=== PATIENT | female | born 1955 | race African-American/Black ===

== ENCOUNTER 2017-02-20 20:43 | Emergency (ER) | payer MEDICARE, OTHER ==
[~2017-02-20] VITALS: Ht 167.6 cm; Wt 68.0 kg
[~2017-02-20 20:43] MED LIST: ARIP15TA3 PO; ARIP400S IM; CHOL200016 PO; DULO20CA30 PO; DULO30CA2 PO; FERR-89 PO; LEVO25TA9 PO; TRAZ-144 PO
[2017-02-20 21:30] LABS: BASOPHILS % (AUTO) 0.7 % (0.0-2.0); EOSINOPHILS % (AUTO) 2.5 % (1.0-6.0); HEMATOCRIT 39.3 % (36-46); HEMOGLOBIN 12.8 g/dL (12.0-16.0); LYMPHOCYTES % (AUTO) 17.6 % (22.0-44.0); MEAN CORPUSCULAR HEMOGLOBIN 29.1 pg (26.0-34.0); MEAN CORPUSCULAR HGB CONC 32.6 G/dL (31.0-37.0); MEAN CORPUSCULAR VOLUME 89 fL (80-100); MONOCYTES # (AUTO) 0.8 K/uL (0.1-1.0); NEUTROPHILS # (AUTO) 3.6 K/uL (1.8-7.7); NEUTROPHILS % (AUTO) 65.2 % (40.0-70.0); PLATELET COUNT (AUTO) 297 K/uL (150-450); RED BLOOD CELL COUNT(AUTO) 4.41 MIL/uL (4.00-5.20); RED CELL DISTRIBUTION WIDTH 15.6 % (11.5-14.5); WHITE BLOOD COUNT (AUTO) 5.6 K/uL (4.5-11.0)
[2017-02-20 21:38] LABS: ANION GAP 7 mmol/L (8-16); CALCIUM, TOTAL 9.2 mg/dL (8.8-10.5); CARBON DIOXIDE 28 mmol/L (22-29); CHLORIDE 102 mmol/L (98-107); CREATININE 0.86 mg/dL (0.60-1.30); GLOMERULAR FILTR. RATE CALC > 60 mL/min (>60); POTASSIUM 4.3 mmol/L (3.5-5.1); SODIUM SERUM 137 mmol/L (136-145); UREA NITROGEN, BLOOD 13 mg/dL (7-18)
[2017-02-20 21:44] LABS: ALANINE AMINOTRANSFERASE 17 U/L (12-78); ALBUMIN 3.5 g/dL (3.4-5.0); ASPARTATE AMINOTRANSFERASE 22 U/L (15-37); BILIRUBIN,TOTAL 0.3 mg/dL (0.1-1.0); TOTAL PROTEIN, SERUM 7.4 g/dL (6.4-8.2)
[2017-02-20] MEDS ORDERED: TraZODone HCL 50 MG TABLET PO ONE (23:45)
[2017-02-20 23:59] VITALS: BP 134/70
== END 2017-02-21 00:03 | disposition home or self-care (01) ==
LOC: EMS 20:45
DX: F32.9 Major depressive disorder, single episode, unspecified (principal); F20.9 Schizophrenia, unspecified
CPT/HCPCS: 36415; 80053; 85025; 99284; G0480

== ENCOUNTER 2017-10-15 19:32 | Inpatient (IN) | payer MEDICARE, OTHER ==
[~2017-10-15] VITALS: Ht 167.6 cm; Wt 64.5 kg
[~2017-10-15 19:32] MED LIST changes: +ARIP15TA2 PO; -ARIP15TA3 PO; -ARIP400S IM; -DULO30CA2 PO
[2017-10-15] MEDS ORDERED: TRAZ-147 PO (19:41)
[2017-10-15] MEDS ORDERED: CLON.5 PO (19:41)
[2017-10-15] MEDS ORDERED: RISP1 PO ×2 (19:41)
[2017-10-15 20:41] LABS: EOSINOPHILS % (AUTO) 0.2 % (1.0-6.0); HEMATOCRIT 36.3 % (36-46); HEMOGLOBIN 12.2 g/dL (12.0-16.0); LYMPHOCYTES # (AUTO) 0.9 K/uL (1.0-4.8); LYMPHOCYTES % (AUTO) 11.6 % (22.0-44.0); MEAN CORPUSCULAR HEMOGLOBIN 31.7 pg (26.0-34.0); MEAN CORPUSCULAR HGB CONC 33.7 G/dL (31.0-37.0); MEAN CORPUSCULAR VOLUME 94 fL (80-100); MONOCYTES # (AUTO) 0.6 K/uL (0.1-1.0); MONOCYTES % (AUTO) 8.4 % (2.0-9.0); NEUTROPHILS % (AUTO) 78.8 % (40.0-70.0); PLATELET COUNT (AUTO) 244 K/uL (150-450); RED BLOOD CELL COUNT(AUTO) 3.86 MIL/uL (4.00-5.20); RED CELL DISTRIBUTION WIDTH 14.8 % (11.5-14.5); WHITE BLOOD COUNT (AUTO) 7.6 K/uL (4.5-11.0)
[2017-10-15 20:46] LABS: ANION GAP 6 mmol/L (8-16); CALCIUM, TOTAL 9.2 mg/dL (8.8-10.5); CARBON DIOXIDE 30 mmol/L (22-29); CHLORIDE 104 mmol/L (98-107); CREATININE 0.97 mg/dL (0.60-1.30); GLOMERULAR FILTR. RATE CALC > 60 mL/min (>60); POTASSIUM 3.9 mmol/L (3.5-5.1); SODIUM SERUM 140 mmol/L (136-145); UREA NITROGEN, BLOOD 13 mg/dL (7-18)
[2017-10-15 20:48] LABS: INR 1.1 (0.9-1.1); PROTHROMBIN TIME 11.4 SEC (9.4-11.6)
[2017-10-15 21:02] LABS: B-TYPE NATRIURETIC PEPTIDE 15 pg/mL (0-100)
[2017-10-15 21:11] LABS: ALANINE AMINOTRANSFERASE 31 U/L (12-78); ALBUMIN 3.3 g/dL (3.4-5.0); ASPARTATE AMINOTRANSFERASE 23 U/L (15-37); BILIRUBIN,TOTAL 0.4 mg/dL (0.1-1.0); CREATINE KINASE MB 1.1 ng/mL (0-5); CREATINE KINASE, TOTAL 136 U/L (26-192); TOTAL PROTEIN, SERUM 6.8 g/dL (6.4-8.2)
[2017-10-15 21:34] LABS: GLUCOSE, URINE (UA) 100 mg/dL (NEGATIVE); KETONES,URINE TRACE mg/dL (NEGATIVE); LEUKOCYTE ESTERASE ,URINE TRACE (NEGATIVE); OCCULT BLOOD,URINE NEGATIVE (NEGATIVE); PH,URINE 5.5 (5.0-8.0); PROTEIN,URINE NEGATIVE (NEGATIVE)
[2017-10-15 21:40] LABS: ADD UA MICROSCOPIC YES; APPEARANCE,URINE HAZY (CLEAR)
[2017-10-15 21:43] LABS: RBC,URINE 0-2 /HPF (0-2); WBC,URINE 0-2 /HPF (0-5)
[2017-10-15 21:44] LABS: SQUAMOUS EPITHELIAL CELL,UR Few /LPF (None Seen)
[2017-10-16 02:38] VITALS: BP 146/71
[2017-10-16] MEDS ORDERED: INFLUENZA VIRUS VACCINE QVS 2017-18 (3YR+)/PF 60 MCG/0.5 ML SYRINGE IM ONE (05:45)
[2017-10-16 07:44] VITALS: BP 116/59
[2017-10-16] MEDS ORDERED: MAGNESIUM HYDROXIDE SUSPENSION 30 ML UDCUP PO PRN (09:15)
[2017-10-16] MEDS ORDERED: ACETAMINOPHEN 325 MG TABLET PO PRN (09:15)
[2017-10-16] MEDS: ASPIRIN 81 MG CHEWABLE TABLET PO SCH (09:58)
[2017-10-16] MEDS: ENOXAPARIN SODIUM 40 MG/0.4 ML PF SYRINGE SQ SCH (09:58)
[2017-10-16 11:55] VITALS: BP 124/64
[2017-10-16] MEDS: OxyCODONE HCL/ACETAMINOPHEN 5-325 MG TABLET PO PRN (14:14)
[2017-10-16 15:30] VITALS: BP 126/68
[2017-10-16 20:00] VITALS: BP 126/61
[2017-10-16] MEDS: DOCUSATE SODIUM 100 MG CAPSULE PO SCH (20:51)
[2017-10-16 23:00] VITALS: BP 140/56
[2017-10-17 04:00] VITALS: BP 142/56
[2017-10-17 07:35] VITALS: BP 138/71
[2017-10-17] MEDS: ASPIRIN 81 MG CHEWABLE TABLET PO SCH (08:54)
[2017-10-17] MEDS: DOCUSATE SODIUM 100 MG CAPSULE PO SCH ×2 (08:54→19:58)
[2017-10-17] MEDS: ENOXAPARIN SODIUM 40 MG/0.4 ML PF SYRINGE SQ SCH (08:54)
[2017-10-17] MEDS: PANTOPRAZOLE SODIUM 40 MG DR TABLET PO SCH (08:54)
[2017-10-17 15:30] VITALS: BP 137/70
[2017-10-17] MEDS: OxyCODONE HCL/ACETAMINOPHEN 5-325 MG TABLET PO PRN (19:58)
[2017-10-17 20:09] VITALS: BP 131/68
[2017-10-17 23:59] VITALS: BP 135/70
[2017-10-18 05:53] VITALS: BP 138/67
[2017-10-18 07:26] VITALS: BP 135/54
[2017-10-18] MEDS: ENOXAPARIN SODIUM 40 MG/0.4 ML PF SYRINGE SQ SCH (08:13)
[2017-10-18] MEDS: DOCUSATE SODIUM 100 MG CAPSULE PO SCH ×2 (08:13→20:03)
[2017-10-18] MEDS: ASPIRIN 81 MG CHEWABLE TABLET PO SCH (08:13)
[2017-10-18] MEDS: PANTOPRAZOLE SODIUM 40 MG DR TABLET PO SCH (08:13)
[2017-10-18 11:48] VITALS: BP 131/61
[2017-10-18 16:23] VITALS: BP 139/55
[2017-10-18 19:30] VITALS: BP 138/60
[2017-10-18 23:30] VITALS: BP 132/56
[2017-10-19] VITALS (7 sets, daily range): BP systolic 125–140; BP diastolic 56–75
[2017-10-19] MEDS: PANTOPRAZOLE SODIUM 40 MG DR TABLET PO SCH (08:14)
[2017-10-19] MEDS: DOCUSATE SODIUM 100 MG CAPSULE PO SCH ×2 (08:14→20:35)
[2017-10-19] MEDS: ENOXAPARIN SODIUM 40 MG/0.4 ML PF SYRINGE SQ SCH (08:14)
[2017-10-19] MEDS: ASPIRIN 81 MG CHEWABLE TABLET PO SCH (08:14)
[2017-10-19] MEDS: OxyCODONE HCL/ACETAMINOPHEN 5-325 MG TABLET PO PRN (20:39)
[2017-10-20 03:30] VITALS: BP 134/62
[2017-10-20 07:05] VITALS: BP 115/76
[2017-10-20] MEDS: ENOXAPARIN SODIUM 40 MG/0.4 ML PF SYRINGE SQ SCH (08:44)
[2017-10-20] MEDS: DOCUSATE SODIUM 100 MG CAPSULE PO SCH (08:44)
[2017-10-20] MEDS: PANTOPRAZOLE SODIUM 40 MG DR TABLET PO SCH (08:44)
[2017-10-20] MEDS: ASPIRIN 81 MG CHEWABLE TABLET PO SCH (08:44)
[2017-10-20 10:58] LABS: BASOPHILS % (AUTO) 0.5 % (0.0-2.0); EOSINOPHILS % (AUTO) 0.6 % (1.0-6.0); HEMATOCRIT 37.6 % (36-46); HEMOGLOBIN 12.6 g/dL (12.0-16.0); LYMPHOCYTES # (AUTO) 0.7 K/uL (1.0-4.8); LYMPHOCYTES % (AUTO) 9.9 % (22.0-44.0); MEAN CORPUSCULAR HEMOGLOBIN 31.7 pg (26.0-34.0); MEAN CORPUSCULAR HGB CONC 33.5 G/dL (31.0-37.0); MEAN CORPUSCULAR VOLUME 95 fL (80-100); MONOCYTES # (AUTO) 0.6 K/uL (0.1-1.0); MONOCYTES % (AUTO) 8.6 % (2.0-9.0); NEUTROPHILS % (AUTO) 80.4 % (40.0-70.0); PLATELET COUNT (AUTO) 212 K/uL (150-450); RED BLOOD CELL COUNT(AUTO) 3.97 MIL/uL (4.00-5.20); RED CELL DISTRIBUTION WIDTH 14.4 % (11.5-14.5); WHITE BLOOD COUNT (AUTO) 7.5 K/uL (4.5-11.0)
[2017-10-20 11:24] LABS: ANION GAP 7 mmol/L (8-16); CALCIUM, TOTAL 9.1 mg/dL (8.8-10.5); CARBON DIOXIDE 29 mmol/L (22-29); CHLORIDE 102 mmol/L (98-107); CREATININE 0.76 mg/dL (0.60-1.30); GLOMERULAR FILTR. RATE CALC > 60 mL/min (>60); POTASSIUM 4.1 mmol/L (3.5-5.1); SODIUM SERUM 138 mmol/L (136-145); UREA NITROGEN, BLOOD 16 mg/dL (7-18)
[2017-10-20 11:35] VITALS: BP 112/48
[2017-10-20 15:39] VITALS: BP 115/56
== END 2017-10-20 17:35 | disposition home or self-care (01) | DRG 598 ==
LOC: EMS 19:33 → 6N 10-16 00:16
PROVIDERS: ADMIT Internal Medicine; ATTEND Internal Medicine
PROC: 3E0234Z Introduction of Serum, Toxoid and Vaccine into Muscle, Percutaneous Approach (ICD-10-PCS; principal; 2017-10-17)
DX: C50.919 Malignant neoplasm of unspecified site of unspecified female breast (principal); E44.1 Mild protein-calorie malnutrition; F32.9 Major depressive disorder, single episode, unspecified; F20.9 Schizophrenia, unspecified; Z90.13 Acquired absence of bilateral breasts and nipples; Z68.23 Body mass index [BMI] 23.0-23.9, adult; Z79.82 Long term (current) use of aspirin; Z23 Encounter for immunization
CPT/HCPCS: 70450; 87081; 90471; 93005; 97110; 97162; 97530; 99285; J1650

== ENCOUNTER 2022-10-11 19:03 | Emergency (ER) | payer MEDICARE, OTHER ==
[~2022-10-11] VITALS: Ht 160 cm; Wt 63.4 kg
[~2022-10-11 19:03] MED LIST changes: -ARIP15TA2 PO; -CHOL200016 PO; +CLON-592 PO; -DULO20CA30 PO; -FERR-89 PO; -LEVO25TA9 PO; +RISP1TAB48 PO; -TRAZ-144 PO; +TRAZ-257 PO
[2022-10-11] MEDS ORDERED: LATA2.5D14 OU (19:49)
[2022-10-11] MEDS ORDERED: ESCI20TA37 PO (19:49)
[2022-10-11] MEDS ORDERED: ATOR40TA71 PO (19:49)
[2022-10-11] MEDS ORDERED: FAMO20 PO (19:49)
[2022-10-11 20:14] LABS: BASOPHILS % (AUTO) 0.5 % (0.0-2.0); HEMATOCRIT 33.8 % (36-46); HEMOGLOBIN 11.1 g/dL (12.0-16.0); LYMPHOCYTES # (AUTO) 1.6 K/uL (1.0-4.8); LYMPHOCYTES % (AUTO) 25.7 % (22.0-44.0); MEAN CORPUSCULAR HGB CONC 32.8 G/dL (31.0-37.0); MEAN CORPUSCULAR VOLUME 89 fL (80-100); MONOCYTES # (AUTO) 0.8 K/uL (0.1-1.0); MONOCYTES % (AUTO) 12.6 % (2.0-9.0); NEUTROPHILS # (AUTO) 3.6 K/uL (1.8-7.7); NEUTROPHILS % (AUTO) 59.2 % (40.0-70.0); PLATELET COUNT (AUTO) 253 K/uL (150-450); RED BLOOD CELL COUNT(AUTO) 3.81 MIL/uL (4.00-5.20); RED CELL DISTRIBUTION WIDTH 17.6 % (11.5-14.5)
[2022-10-11] MEDS ORDERED: SODIUM CHLORIDE 0.9% 500 ML IV ONE (20:15)
[2022-10-11 20:33] LABS: ANION GAP 2 mmol/L (8-16); CALCIUM, TOTAL 9.2 mg/dL (8.8-10.5); CARBON DIOXIDE 31 mmol/L (22-29); CHLORIDE 106 mmol/L (98-107); CREATININE 0.84 mg/dL (0.60-1.30); GLUCOSE,RANDOM 85 mg/dL (70-110); POTASSIUM 4.2 mmol/L (3.5-5.1); SODIUM SERUM 139 mmol/L (136-145); UREA NITROGEN, BLOOD 12 mg/dL (7-18)
[2022-10-11 20:34] LABS: GLOMERULAR FILTR. RATE CALC > 60 mL/min (>60)
[2022-10-11 20:39] LABS: ALANINE AMINOTRANSFERASE 50 U/L (12-78); ALKALINE PHOSPHATASE 164 U/L (46-116); ASPARTATE AMINOTRANSFERASE 40 U/L (15-37); BILIRUBIN,TOTAL 0.5 mg/dL (0.1-1.0); TOTAL PROTEIN, SERUM 6.9 g/dL (6.4-8.2)
[2022-10-12] VITALS: BP 135/52
== END 2022-10-12 00:44 | disposition home or self-care (01) ==
LOC: EMS 21:22
DX: S09.90XA Unspecified injury of head, initial encounter (principal); E78.5 Hyperlipidemia, unspecified; F20.9 Schizophrenia, unspecified; F31.9 Bipolar disorder, unspecified; F41.9 Anxiety disorder, unspecified; K21.9 Gastro-esophageal reflux disease without esophagitis; W19.XXXA Unspecified fall, initial encounter; Y93.89 Activity, other specified; Y92.89 Other specified places as the place of occurrence of the external cause; Y99.8 Other external cause status; Z85.3 Personal history of malignant neoplasm of breast
CPT/HCPCS: 99284; 70450; 80053; 85025; 36415; 72125; J7030

== ENCOUNTER 2025-11-05 07:53 | Inpatient (IN) | payer MEDICARE, OTHER ==
[2025-11-05] VITALS (7 sets, daily range): BP systolic 115; BP diastolic 86; PULSE 69–100; RESP 18–20; TEMP 97; O2SAT 93–100
[~2025-11-05] VITALS: Ht 162.6 cm; Wt 64.9 kg
[~2025-11-05 07:53] MED LIST changes: +ASPI-1450 PO; +ATOR40TA71 PO; +BISA10SU11 PR; +DOCU250C14 PO; +ESCI20TA87 PO; +FAMO20 PO; +GABA-1181 PO; +LATA2.5D7 OU; +MAGN-169 PO; +MELA5TAB21 PO; +MULT-248 PO; +NITR0.4T50 SL; +RISP-31 PO; -RISP1TAB48 PO; -TRAZ-257 PO
[2025-11-05] MEDS ORDERED: CefTRIAXone 1 GM/DEXTROSE 50 ML IV ONE (08:00)
[2025-11-05] MEDS ORDERED: AZITHROMYCIN 500 MG/NS 250 ML IV ONE (08:00)
[2025-11-05] MEDS ORDERED: 0.9% SODIUM CHLORIDE 10 ML SYRINGE IVP PRN (08:00)
[2025-11-05] MEDS: SODIUM CHLORIDE 0.9% 1,000 ML IV ONE ×2 (08:15→08:49)
[2025-11-05] MEDS ORDERED: ETOMIDATE 2 MG/ML 10 ML VIAL ONE (08:23)
[2025-11-05] MEDS ORDERED: ROCURONIUM BROMIDE 10 MG/ML 5 ML VIAL ONE ×2 (08:24→09:00)
[2025-11-05 08:38] LABS: PLATELET COUNT (AUTO) 279 K/uL (150-450); RED BLOOD CELL COUNT(AUTO) 4.79 MIL/uL (4.00-5.20); RED CELL DISTRIBUTION WIDTH 16.1 % (11.5-14.5); WHITE BLOOD COUNT (AUTO) 7.1 K/uL (4.5-11.0)
[2025-11-05] MEDS: NOREPINEPHRINE 8 MG/0.9 % NACL 250 ML IV PRN (08:41)
[2025-11-05 08:42] LABS: CALCIUM, TOTAL 8.8 mg/dL (8.8-10.5); CREATININE 3.36 mg/dL (0.60-1.30); GLOMERULAR FILTR. RATE CALC 16 mL/min (>60); GLUCOSE,RANDOM 144 mg/dL (70-110); SODIUM SERUM 135 mmol/L (136-145); UREA NITROGEN, BLOOD 98 mg/dL (7-18)
[2025-11-05] MEDS: PHENYLEPHRINE HCL IN 0.9% NACL 400 MCG/10 ML SYRINGE IVP ONE (08:42)
[2025-11-05] MEDS: ACETAMINOPHEN 1000 MG/ISO-OSM 100 ML IV ONE (08:48)
[2025-11-05 08:49] LABS: ASPARTATE AMINOTRANSFERASE 44 U/L (15-37); TOTAL PROTEIN, SERUM 7.8 g/dL (6.4-8.2)
[2025-11-05] MEDS: PIPERACILLIN/TAZO 3.375 GM/D5W 50 ML IV ONE (08:50)
[2025-11-05 08:51] LABS: TROPONIN I-HIGH SENSITIVITY 64 ng/L (<51)
[2025-11-05 08:52] LABS: LACTIC ACID 2.1 mmol/L (0.4-2.0)
[2025-11-05] MEDS ORDERED: CALCIUM GLUCONATE 0.465 MEQ/ML 10 ML VIAL ONE (08:52)
[2025-11-05 08:57] LABS: COVID AG,FIA SOURCE NASAL SWAB
[2025-11-05] MEDS: DEXTROSE 50%-WATER 25 GM/50 ML SYRINGE IVP ONE (08:59)
[2025-11-05] MEDS: INSULIN REGULAR, HUMAN 100 UNITS/ML IVP ONE (09:01)
[2025-11-05 09:11] LABS: APPEARANCE,URINE HAZY (CLEAR); GLUCOSE, URINE (UA) NEGATIVE (NEGATIVE); LEUKOCYTE ESTERASE ,URINE NEGATIVE (NEGATIVE); NITRATE,URINE NEGATIVE (NEGATIVE); OCCULT BLOOD,URINE SMALL (NEGATIVE); SPECIFIC GRAVITIY, URINE 1.027 (1.003-1.030)
[2025-11-05] MEDS: SODIUM ZIRCONIUM CYCLOSILICATE 10 GM POWDER PACKET NG ONE (09:12)
[2025-11-05] MEDS: PROPOFOL 1000 MG/ISO-OSM 100 ML IV PRN (09:13)
[2025-11-05 09:23] LABS: SQUAMOUS EPITHELIAL CELL,UR Moderate /LPF (None Seen)
[2025-11-05 09:24] LABS: HYALINE CASTS, URINE 0-2 /LPF (None Seen)
[2025-11-05] MEDS: ALBUTEROL SULFATE 2.5 MG/0.5 ML 5 ML NEB SOLUTION NEB ONE (09:26)
[2025-11-05] MEDS ORDERED: ONDANSETRON HCL 4 MG/2 ML VIAL IVP PRN (09:30)
[2025-11-05] MEDS ORDERED: ACETAMINOPHEN 650 MG/20.3 ML SOLUTION UDCUP GT PRN (09:30)
[2025-11-05 09:31] LABS: SARS-COV2 (COVID) ANTIGEN,FIA Negative (Negative)
[2025-11-05 09:32] LABS: INFLUENZA TYPE A NEGATIVE FOR TYPE A (NEGATIVE); INFLUENZA TYPE B NEGATIVE FOR TYPE B (NEGATIVE)
[2025-11-05 09:36] LABS: ABG BASE EXCESS -11.6 mmol/L (-2.0-3.0); ABG CARBOXYHEMOGLOBIN 0.6 % (0.5-1.5); ABG HCO3 16.0 mmol/L (21.0-28.0); ABG METHEMOGLOBIN 0.7 % (0.0-1.5); ABG OXYGEN CONTENT 16.7 mL/dL (15.0-23.0); ABG OXYGEN SATURATION 99.2 % (94.0-98.0); ABG OXYHEMOGLOBIN 97.9 % (94.0-98.0); ABG PCO2 37 mmHg (32.0-45.0); ABG TOTAL HEMOGLOBIN 11.6 G/dL (12.0-16.0); FRACTIONATED INSPIRED OXYGEN 100.0 % (21-100.0); SOURCE, BLOOD GAS ARTERIAL; TEMPERATURE, FAHRENHEIT, BG 98.8 FAHREN (96.0-98.6)
[2025-11-05 09:37] LABS: ABG PH 7.243 (7.350-7.450); ALLEN TEST, BLOOD GAS POS; O2 DEVICE,BLOOD GAS VENTILATOR (ROOM AIR); PO2, ARTERIAL BG 307.5 mmHg (83.0-108.0); SITE, BLOOD GAS RT RADIAL
[2025-11-05] MEDS: AZITHROMYCIN 500 MG/NS 250 ML IV ONE (09:37)
[2025-11-05 09:38] LABS: PATIENT RATE, BG 20.0 min.; PEEP,BG 5 cm H2O; SET RATE, BG 20.0 min.; VT, ABG 320 ml
[2025-11-05] MEDS: CALCIUM GLUCONATE 1,000 MG in DEXTROSE 5%-WATER 50 ML IV ONE (09:40)
[2025-11-05 09:56] LABS: TROPONIN I-HIGH SENSITIVITY 59 ng/L (<51)
[2025-11-05] MEDS: FentaNYL CIT 1000MCG/0.9% NACL 100 ML IV PRN (10:04)
[2025-11-05 10:46] LABS: GLUCOMETER DEV NAME(LOC) ERT.7; GLUCOSE,POINT OF CARE 220 MG/DL (70-110)
[2025-11-05] MEDS: VANCOMYCIN 1.25 GM/WATER(PEG) 250 ML IV ONE (11:16)
[2025-11-05] MEDS ORDERED: MULT-1303 PO (11:50)
[2025-11-05] MEDS ORDERED: ESCI-8 PO (11:50)
[2025-11-05] MEDS: ALBUMIN HUMAN 5%-12.5GM/250ML 250 ML IV ONE (11:52)
[2025-11-05 11:59] LABS: TROPONIN I-HIGH SENSITIVITY 71 ng/L (<51)
[2025-11-05 12:58] LABS: ABG BASE EXCESS -13.3 mmol/L (-2.0-3.0); ABG CARBOXYHEMOGLOBIN 0.8 % (0.5-1.5); ABG HCO3 14.6 mmol/L (21.0-28.0); ABG METHEMOGLOBIN 0.4 % (0.0-1.5); ABG OXYGEN CONTENT 15.9 mL/dL (15.0-23.0); ABG OXYGEN SATURATION 98.5 % (94.0-98.0); ABG OXYHEMOGLOBIN 97.3 % (94.0-98.0); ABG PCO2 39 mmHg (32.0-45.0); ABG TOTAL HEMOGLOBIN 11.4 G/dL (12.0-16.0); FRACTIONATED INSPIRED OXYGEN 70.0 % (21-100.0); PO2, ARTERIAL BG 160.5 mmHg (83.0-108.0); SOURCE, BLOOD GAS ARTERIAL; TEMPERATURE, FAHRENHEIT, BG 96.3 FAHREN (96.0-98.6)
[2025-11-05 12:59] LABS: ABG PH 7.195 (7.350-7.450); ALLEN TEST, BLOOD GAS POS; O2 DEVICE,BLOOD GAS VENTILATOR (ROOM AIR); PATIENT RATE, BG 20.0 min.; PEEP,BG 5 cm H2O; SET RATE, BG 20.0 min.; SITE, BLOOD GAS RT BRACHIAL; VT, ABG 320 ml
[2025-11-05 13:46] LABS: CALCIUM, TOTAL 7.2 mg/dL (8.8-10.5); CREATININE 2.29 mg/dL (0.60-1.30); GLOMERULAR FILTR. RATE CALC 26.0 mL/min (>60); GLUCOSE,RANDOM 210.0 mg/dL (70-110); SODIUM SERUM 142.0 mmol/L (136-145); UREA NITROGEN, BLOOD 77.0 mg/dL (7-18)
[2025-11-05] MEDS: SODIUM BICARBONATE 75 MEQ in SODIUM CHLORIDE 0.45% 1,000 ML IV SCH (14:10)
[2025-11-05] MEDS: RINGERS SOLUTION,LACTATED 500 ML IV ONE (14:40)
[2025-11-05] MEDS: PIPERACILLIN SODIUM/TAZOBACTAM 2.25 GM in DEXTROSE 5%-WATER 50 ML IV SCH (18:28)
[2025-11-05 20:57] LABS: ABG BASE EXCESS -4.5 mmol/L (-2.0-3.0); ABG CARBOXYHEMOGLOBIN 1.5 % (0.5-1.5); ABG HCO3 20.5 mmol/L (21.0-28.0); ABG METHEMOGLOBIN 0.4 % (0.0-1.5); ABG OXYGEN CONTENT 14.3 mL/dL (15.0-23.0); ABG OXYGEN SATURATION 88.2 % (94.0-98.0); ABG OXYHEMOGLOBIN 86.5 % (94.0-98.0); ABG PCO2 51 mmHg (32.0-45.0); ABG PH 7.264 (7.350-7.450); ABG TOTAL HEMOGLOBIN 11.7 G/dL (12.0-16.0); FRACTIONATED INSPIRED OXYGEN 70.0 % (21-100.0); PO2, ARTERIAL BG 59.5 mmHg (83.0-108.0); SOURCE, BLOOD GAS ARTERIAL; TEMPERATURE, FAHRENHEIT, BG 99.2 FAHREN (96.0-98.6)
[2025-11-05 20:58] LABS: ABG A-A DIFF O2 384.2 mmHg (10-20.0); ALLEN TEST, BLOOD GAS Positive; O2 DEVICE,BLOOD GAS VENTILATOR (ROOM AIR); SITE, BLOOD GAS LFT RADIAL
[2025-11-05 20:59] LABS: PATIENT RATE, BG 20.0 min.; PEEP,BG 5 cm H2O; SET RATE, BG 20.0 min.; SPONTANEOUS VT, BG 251 ml; VT, ABG 320 ml
[2025-11-05] MEDS: CHLORHEXIDINE GLUCONATE 2% TOWELETTE [2'S/6'S] TP SCH (23:13)
[2025-11-06] VITALS (13 sets, daily range): BP systolic 87–109; BP diastolic 52–72; PULSE 57–74; RESP 14–24; TEMP 98.3–98.7; O2SAT 97–100
[2025-11-06] MEDS ORDERED: SODIUM CHLORIDE 0.9% 250 ML IV ONE (01:43)
[2025-11-06] MEDS: FentaNYL CIT 1000MCG/0.9% NACL 100 ML IV PRN (03:17)
[2025-11-06 06:28] LABS: RED BLOOD CELL COUNT(AUTO) 3.69 MIL/uL (4.00-5.20); RED CELL DISTRIBUTION WIDTH 16.6 % (11.5-14.5); WHITE BLOOD COUNT (AUTO) 4.8 K/uL (4.5-11.0)
[2025-11-06 06:29] LABS: CALCIUM, TOTAL 7.6 mg/dL (8.8-10.5); CREATININE 0.98 mg/dL (0.60-1.30); GLOMERULAR FILTR. RATE CALC > 60 mL/min (>60); GLUCOSE,RANDOM 105 mg/dL (70-110); SODIUM SERUM 144 mmol/L (136-145); UREA NITROGEN, BLOOD 46 mg/dL (7-18)
[2025-11-06 06:34] LABS: PHOSPHORUS 2.7 mg/dL (2.5-4.9)
[2025-11-06 06:49] LABS: PLATELET COUNT (AUTO) 237 K/uL (150-450)
[2025-11-06 07:00] LABS: APPEARANCE,URINE HAZY (CLEAR); GLUCOSE, URINE (UA) NEGATIVE (NEGATIVE); LEUKOCYTE ESTERASE ,URINE NEGATIVE (NEGATIVE); NITRATE,URINE NEGATIVE (NEGATIVE); OCCULT BLOOD,URINE MODERATE (NEGATIVE); SPECIFIC GRAVITIY, URINE 1.029 (1.003-1.030)
[2025-11-06 07:06] LABS: CREATININE,URINE RANDOM 92.2 mg/dL (30.0-125.0); UREA NITROGEN,URINE RANDOM 973.0 mg/dL (350-1000)
[2025-11-06] MEDS: NOREPINEPHRINE 8 MG/0.9 % NACL 250 ML IV PRN (07:26)
[2025-11-06 07:40] LABS: SQUAMOUS EPITHELIAL CELL,UR Few /LPF (None Seen)
[2025-11-06] MEDS: PIPERACILLIN/TAZO 3.375 GM/D5W 50 ML IV SCH (08:22)
[2025-11-06] MEDS: PANTOPRAZOLE SODIUM 40 MG/VIAL IVP SCH (08:22)
[2025-11-06] MEDS: POTASSIUM CHL 10 MEQ/WATER 50 ML IV SCH ×2 (09:58→12:11)
[2025-11-06] MEDS: SODIUM CHLORIDE 0.45% 1,000 ML IV SCH (11:03)
[2025-11-06] MEDS: DEXTROSE 5%-0.45% SODIUM CHL 1,000 ML IV SCH (16:29)
[2025-11-06 17:38] LABS: CALCIUM, TOTAL 7.8 mg/dL (8.8-10.5); CREATININE 0.82 mg/dL (0.60-1.30); GLOMERULAR FILTR. RATE CALC > 60 mL/min (>60); GLUCOSE,RANDOM 90 mg/dL (70-110); SODIUM SERUM 142 mmol/L (136-145); UREA NITROGEN, BLOOD 36 mg/dL (7-18)
[2025-11-06] MEDS: PROPOFOL 1000 MG/ISO-OSM 100 ML IV PRN (17:47)
[2025-11-06] MEDS: ETHYL ALCOHOL 62% ANTISEPTIC NASAL SANITIZER 0.6 ML AMPUL NASAL SCH (20:17)
[2025-11-07] VITALS (9 sets, daily range): BP systolic 91–116; BP diastolic 45–67; PULSE 47–66; RESP 12–22; TEMP 98.1–99.9; O2SAT 40–100
[2025-11-07 06:32] LABS: CALCIUM, TOTAL 8.0 mg/dL (8.8-10.5); CREATININE 0.74 mg/dL (0.60-1.30); GLOMERULAR FILTR. RATE CALC > 60 mL/min (>60); GLUCOSE,RANDOM 101 mg/dL (70-110); SODIUM SERUM 142 mmol/L (136-145); UREA NITROGEN, BLOOD 29 mg/dL (7-18)
[2025-11-07 06:34] LABS: PLATELET COUNT (AUTO) 178 K/uL (150-450); RED BLOOD CELL COUNT(AUTO) 3.56 MIL/uL (4.00-5.20); RED CELL DISTRIBUTION WIDTH 16.8 % (11.5-14.5); WHITE BLOOD COUNT (AUTO) 19.0 K/uL (4.5-11.0)
[2025-11-07 06:36] LABS: PHOSPHORUS 1.7 mg/dL (2.5-4.9)
[2025-11-07 08:11] LABS: BAND NEUTROPHILS % (MANUAL) 41 % (0-5); EOSINOPHILS % (MANUAL) 1 % (1-6); LYMPHOCYTES % (MANUAL) 4 % (22-44); METAMYELOCYTES % 2 % (0-0); MONOCYTES % (MANUAL) 3 % (2-9); NUCLEATED RED BLOOD CELLS 1.0 % (0.0-0.0); SEGMENTED NEUTROPHILS % 49 % (40-70)
[2025-11-07] MEDS: POTASSIUM PHOS,M-BASIC-D-BASIC 10 MEQ in DEXTROSE 5%-WATER 50 ML IV ONE (09:41)
[2025-11-07] MEDS: AMPICILLIN SODIUM/SULBACTAM NA 3 GM in SODIUM CHLORIDE 0.9% 100 ML IV SCH (14:48)
[2025-11-08] VITALS (7 sets, daily range): BP systolic 114–136; BP diastolic 53–73; PULSE 55–64; RESP 13–20; TEMP 98.4–99.6; O2SAT 97–100
[2025-11-08 06:05] LABS: PLATELET COUNT (AUTO) 201 K/uL (150-450); RED BLOOD CELL COUNT(AUTO) 3.84 MIL/uL (4.00-5.20); RED CELL DISTRIBUTION WIDTH 16.4 % (11.5-14.5); WHITE BLOOD COUNT (AUTO) 17.6 K/uL (4.5-11.0)
[2025-11-08 06:44] LABS: CALCIUM, TOTAL 8.0 mg/dL (8.8-10.5); CREATININE 0.65 mg/dL (0.60-1.30); GLOMERULAR FILTR. RATE CALC > 60 mL/min (>60); GLUCOSE,RANDOM 88 mg/dL (70-110); SODIUM SERUM 143 mmol/L (136-145); UREA NITROGEN, BLOOD 16 mg/dL (7-18)
[2025-11-08 06:57] LABS: PHOSPHORUS 1.3 mg/dL (2.5-4.9)
[2025-11-08] MEDS ORDERED: POTASSIUM CHLORIDE 20 MEQ ER TABLET PO PRN (07:00)
[2025-11-08] MEDS ORDERED: POTASSIUM CHL 40 MEQ/D5-0.45NS 1,000 ML IV ONE (07:00)
[2025-11-08] MEDS ORDERED: SODIUM CHLORIDE 0.9% 250 ML IV ONE (08:01)
[2025-11-08] MEDS: POTASSIUM CHL 10 MEQ/WATER 50 ML IV ONE (08:08)
[2025-11-08] MEDS: POTASSIUM PHOS,M-BASIC-D-BASIC 30 MEQ in DEXTROSE 5%-WATER 150 ML IV ONE (09:54)
[2025-11-08 10:44] LABS: BAND NEUTROPHILS % (MANUAL) 28 % (0-5); LYMPHOCYTES % (MANUAL) 4 % (22-44); METAMYELOCYTES % 1 % (0-0); MONOCYTES % (MANUAL) 3 % (2-9); SEGMENTED NEUTROPHILS % 64 % (40-70)
[2025-11-08 10:45] LABS: RBC MORPHOLOGY COMMENT NORMAL RBC MORPH
[2025-11-08] MEDS ORDERED: POTASSIUM CHL 10 MEQ/WATER 50 ML IV PRN (13:45)
[2025-11-08 16:18] LABS: CALCIUM, TOTAL 7.5 mg/dL (8.8-10.5); CREATININE 0.60 mg/dL (0.60-1.30); GLOMERULAR FILTR. RATE CALC > 60 mL/min (>60); GLUCOSE,RANDOM 81 mg/dL (70-110); SODIUM SERUM 142 mmol/L (136-145); UREA NITROGEN, BLOOD 11 mg/dL (7-18)
[2025-11-08] MEDS ORDERED: SODIUM CHLORIDE 0.9% 500 ML IV ONE ×2 (18:12→21:04)
[2025-11-08] MEDS: POTASSIUM CHL 10 MEQ/WATER 50 ML IV PRN (18:13)
[2025-11-08] MEDS: VANCOMYCIN 1.25 GM/WATER(PEG) 250 ML IV ONE (18:50)
[2025-11-09 00:11] VITALS: BP 131/68; PULSE 66; RESP 18; TEMP 97.7; O2SAT 97
[2025-11-09 04:15] VITALS: BP 143/76; PULSE 56; RESP 18; TEMP 97.7; O2SAT 99
[2025-11-09 06:45] LABS: PLATELET COUNT (AUTO) 195 K/uL (150-450); RED BLOOD CELL COUNT(AUTO) 3.73 MIL/uL (4.00-5.20); RED CELL DISTRIBUTION WIDTH 16.1 % (11.5-14.5); WHITE BLOOD COUNT (AUTO) 12.0 K/uL (4.5-11.0)
[2025-11-09 07:41] VITALS: BP 143/71; PULSE 54; RESP 18; TEMP 98; O2SAT 96
[2025-11-09] MEDS: VANCOMYCIN 750 MG/WATER(PEG) 150 ML IV SCH (08:48)
[2025-11-09 08:59] LABS: CALCIUM, TOTAL 7.7 mg/dL (8.8-10.5); CREATININE 0.51 mg/dL (0.60-1.30); GLOMERULAR FILTR. RATE CALC > 60 mL/min (>60); GLUCOSE,RANDOM 50 mg/dL (70-110); SODIUM SERUM 143 mmol/L (136-145); UREA NITROGEN, BLOOD 13 mg/dL (7-18)
[2025-11-09 09:37] LABS: ASPARTATE AMINOTRANSFERASE 62 U/L (15-37); PHOSPHORUS 2.1 mg/dL (2.5-4.9); TOTAL PROTEIN, SERUM 5.4 g/dL (6.4-8.2)
[2025-11-09] MEDS: POTASSIUM CHL 10 MEQ/WATER 50 ML IV SCH (11:18)
[2025-11-09] MEDS: POTASSIUM PHOS,M-BASIC-D-BASIC 20 MEQ in DEXTROSE 5%-WATER 100 ML IV ONE (11:19)
[2025-11-09 11:33] VITALS: BP 114/61; PULSE 50; RESP 18; TEMP 98.1; O2SAT 97
[2025-11-09 15:12] VITALS: BP 135/60; PULSE 52; RESP 18; TEMP 98.2; O2SAT 98
[2025-11-09 16:26] LABS: CALCIUM, TOTAL 8.1 mg/dL (8.8-10.5); CREATININE 0.62 mg/dL (0.60-1.30); GLOMERULAR FILTR. RATE CALC > 60 mL/min (>60); GLUCOSE,RANDOM 86 mg/dL (70-110); SODIUM SERUM 144 mmol/L (136-145); UREA NITROGEN, BLOOD 12 mg/dL (7-18)
[2025-11-09 16:30] LABS: PHOSPHORUS 2.7 mg/dL (2.5-4.9)
[2025-11-09] MEDS: DEXTRAN 70 0.1%/HYPROMELL 0.3% 0.9 ML OPHTHALMIC SOLUTION [PF] OU SCH (17:29)
[2025-11-09 20:00] VITALS: BP 135/56; PULSE 54; RESP 18; TEMP 98.8; O2SAT 97
[2025-11-09] MEDS: CefTRIAXone SODIUM 2 GM in DEXTROSE 5%-WATER 50 ML IV SCH (21:11)
[2025-11-10] VITALS (7 sets, daily range): BP systolic 108–155; BP diastolic 54–89; PULSE 52–60; RESP 16–19; TEMP 97.9–99; O2SAT 97–99
[2025-11-10 08:40] LABS: PLATELET COUNT (AUTO) 206 K/uL (150-450); RED BLOOD CELL COUNT(AUTO) 3.68 MIL/uL (4.00-5.20); RED CELL DISTRIBUTION WIDTH 15.9 % (11.5-14.5); WHITE BLOOD COUNT (AUTO) 10.9 K/uL (4.5-11.0)
[2025-11-10 09:18] LABS: CALCIUM, TOTAL 8.2 mg/dL (8.8-10.5); CREATININE 0.58 mg/dL (0.60-1.30); GLOMERULAR FILTR. RATE CALC > 60 mL/min (>60); GLUCOSE,RANDOM 62 mg/dL (70-110); PHOSPHORUS 2.2 mg/dL (2.5-4.9); SODIUM SERUM 145 mmol/L (136-145); UREA NITROGEN, BLOOD 10 mg/dL (7-18)
[2025-11-10] MEDS: MAGNESIUM SULFATE 1 GM in DEXTROSE 5%-WATER 50 ML IV ONE (11:43)
[2025-11-10] MEDS: SODIUM PHOS,M-BASIC-D-BASIC 10 MEQ in DEXTROSE 5%-WATER 50 ML IV ONE (14:36)
[2025-11-10] MEDS: DEXTROSE 5%-0.45% SODIUM CHL 1,000 ML IV SCH (15:56)
[2025-11-10 16:21] LABS: GLUCOSE,POINT OF CARE 57 MG/DL (70-110)
[2025-11-10] MEDS: VANCOMYCIN 1GM/WATER(PEG/NADA) 200 ML IV SCH (21:47)
[2025-11-11] VITALS (8 sets, daily range): BP systolic 106–145; BP diastolic 52–96; PULSE 50–69; RESP 17–19; TEMP 97.7–98.8; O2SAT 96–98
[2025-11-11 06:57] LABS: PLATELET COUNT (AUTO) 239 K/uL (150-450); RED BLOOD CELL COUNT(AUTO) 3.75 MIL/uL (4.00-5.20); RED CELL DISTRIBUTION WIDTH 15.8 % (11.5-14.5); WHITE BLOOD COUNT (AUTO) 10.4 K/uL (4.5-11.0)
[2025-11-11 07:03] LABS: CALCIUM, TOTAL 8.4 mg/dL (8.8-10.5); CREATININE 0.59 mg/dL (0.60-1.30); GLOMERULAR FILTR. RATE CALC > 60 mL/min (>60); GLUCOSE,RANDOM 59 mg/dL (70-110); SODIUM SERUM 142 mmol/L (136-145); UREA NITROGEN, BLOOD 7 mg/dL (7-18)
[2025-11-11] MEDS: POTASSIUM CHLORIDE 10% 40 MEQ/30 ML LIQUID UDCUP PO PRN (12:42)
[2025-11-11] MEDS ORDERED: SODIUM CHLORIDE 0.9% 500 ML IV ONE (19:36)
[2025-11-12] VITALS: BP 121/56; PULSE 56; RESP 18; TEMP 98.6; O2SAT 97
[2025-11-12 04:00] VITALS: BP 128/55; PULSE 60; RESP 18; TEMP 97.3; O2SAT 99
[2025-11-12 08:10] VITALS: BP 112/50; PULSE 57; RESP 16; TEMP 97.3; O2SAT 99
[2025-11-12 08:25] LABS: PLATELET COUNT (AUTO) 228 K/uL (150-450); RED BLOOD CELL COUNT(AUTO) 3.66 MIL/uL (4.00-5.20); RED CELL DISTRIBUTION WIDTH 16.3 % (11.5-14.5); WHITE BLOOD COUNT (AUTO) 9.4 K/uL (4.5-11.0)
[2025-11-12 09:54] LABS: CALCIUM, TOTAL 7.8 mg/dL (8.8-10.5); CREATININE 0.51 mg/dL (0.60-1.30); GLOMERULAR FILTR. RATE CALC > 60 mL/min (>60); GLUCOSE,RANDOM 69 mg/dL (70-110); SODIUM SERUM 137 mmol/L (136-145); UREA NITROGEN, BLOOD 5 mg/dL (7-18)
[2025-11-12 10:54] LABS: C.DIFF GDH ANTIGEN, Stool Negative (Negative); C.DIFF TOXINS A&B, Stool Negative (Negative)
[2025-11-12 11:27] VITALS: BP 105/62; PULSE 61; RESP 18; TEMP 98.1; O2SAT 97
== END 2025-11-12 14:18 | DRG 871 ==
LOC: EMS 07:53 → EDH 09:27 → ICU 21:25 → 5N 11-08 17:54
PROVIDERS: ADMIT Internal Medicine; ATTEND Internal Medicine
PROC: 5A1945Z Respiratory Ventilation, 24-96 Consecutive Hours (ICD-10-PCS; principal; 2025-11-05)
PROC: 0BH17EZ Insertion of Endotracheal Airway into Trachea, Via Natural or Artificial Opening (ICD-10-PCS; 2025-11-05)
DX: A41.51 Sepsis due to Escherichia coli [E. coli] (principal); G93.41 Metabolic encephalopathy; J69.0 Pneumonitis due to inhalation of food and vomit; J96.01 Acute respiratory failure with hypoxia; R65.21 Severe sepsis with septic shock; N17.0 Acute kidney failure with tubular necrosis; I63.549 Cerebral infarction due to unspecified occlusion or stenosis of unspecified cerebellar artery; K56.609 Unspecified intestinal obstruction, unspecified as to partial versus complete obstruction; B96.89 Other specified bacterial agents as the cause of diseases classified elsewhere; B96.20 Unspecified Escherichia coli [E. coli] as the cause of diseases classified elsewhere; I10 Essential (primary) hypertension; F32.A Depression, unspecified; F20.9 Schizophrenia, unspecified; E87.4 Mixed disorder of acid-base balance; I48.20 Chronic atrial fibrillation, unspecified; K56.7 Ileus, unspecified; Z16.11 Resistance to penicillins; E87.5 Hyperkalemia; E87.6 Hypokalemia; E83.39 Other disorders of phosphorus metabolism; F41.9 Anxiety disorder, unspecified; K21.9 Gastro-esophageal reflux disease without esophagitis; E78.00 Pure hypercholesterolemia, unspecified; Z79.82 Long term (current) use of aspirin; Z79.899 Other long term (current) drug therapy; Z85.3 Personal history of malignant neoplasm of breast; Z90.13 Acquired absence of bilateral breasts and nipples; Z91.041 Radiographic dye allergy status; Z92.3 Personal history of irradiation
CPT/HCPCS: 31500; 36245; 36569; 70450; 71045; 71250; 72125; 72192; 74018; 74019; 74150; 76770; 76937; 80048; 80053; 80076; 80202; 81001; 82570; 82805; 82962; 83605; 83735; 83880; 84100; 84132; 84145; 84300; 84484; 84540; 85025; 85610; 87040; 87070; 87077; 87081; 87086; 87186; 87205; 87324; 87449; 87804; 92526; 92610; 93005; 93306; 94002; 94003; 94644; 97110; 97112; 97163; 97530; 99291; J0131; J0295; J0456; J0610; J0696; J1815; J2470; J2543; J2704; J3010; J3475; J3480; J3490; J7040; J7050; J7060; J7120; P9041; 36415-L1; 36415-TC; X7700